=== PATIENT | male | born 1955 | race Caucasian/White ===

== ENCOUNTER 2024-02-09 07:25 | Inpatient (IN) | payer OTHER, MEDICARE ==
[~2024-02-09] VITALS: Ht 172.7 cm; Wt 72.6 kg
[2024-02-09] VITALS (19 sets, daily range): BP systolic 152–180; BP diastolic 84–100; PULSE 53–69; RESP 12–27; TEMP 30.8358–31.05804; O2SAT 99–100
[~2024-02-09 07:25] MED LIST: ACET250T29 PO; ATOR10TA69 PO; BRIM.2 EACHEYE; COR6 MT; DAPA10TA PO; DORZ10DR9 EACHEYE; FURO-151 MT; HYDR25TA PO; LATA2.5D14 EACHEYE; LOSA50TA41 MT; SERT25TA74 PO
[2024-02-09] MEDS: PROPOFOL 10MG/ML 100ML 100 ML IV ONE (07:45)
[2024-02-09] MEDS: SUCCINYLCHOLINE CHLORIDE 200MG/10ML IV ONE (07:55)
[2024-02-09] MEDS: ETOMIDATE 2MG/ML 10ML VIAL IV ONE (07:55)
[2024-02-09] MEDS: DOPAMINE 400MG/250ML PREMIX 250 ML IV PRN (08:30)
[2024-02-09] MEDS: SODIUM CHLORIDE 0.9% 1,000 ML IV ONE (08:33)
[2024-02-09 10:10] LABS: HEMATOCRIT. 27.6 % (42.0-52.0); HEMOGLOBIN. 8.3 g/dL (14.0-18.0); MEAN CORPUSCULAR HGB CONC 29.9 g/dL (31.0-37.0); MEAN PLATELET VOLUME 8.5 fl (7.4-10.4); PLATELET 338 x1000/uL (130-400); RED BLOOD CELL COUNT 2.85 mill/uL (4.7-6.1); RED CELL DISTRIBUTION WIDTH 18.3 % (11.6-14.6); WHITE BLOOD COUNT 13.7 x1000/uL (4.5-11.0)
[2024-02-09 10:17] LABS: LACTIC ACID 3.4 mmol/L (0.4-2.0)
[2024-02-09 10:18] LABS: CHLORIDE 117 mEq/L (98-107); POTASSIUM 4.5 mEq/L (3.5-5.1); SODIUM 141 mEq/L (136-145)
[2024-02-09 10:19] LABS: CALCIUM 7.9 mg/dL (8.7-10.4); CARBON DIOXIDE 13 mEq/L (21-32)
[2024-02-09 10:24] LABS: TRIGLYCERIDE 94 mg/dL (0-150)
[2024-02-09 10:25] LABS: LDL CHOLESTEROL 53 mg/dL (5-100); UREA NITROGEN BLOOD 82 mg/dL (9-23)
[2024-02-09 10:26] LABS: ALANINE AMINOTRANSFERASE 34 IU/L (10-49); ALBUMIN 3.4 g/dL (3.2-4.8); ASPARTATE AMINOTRANSFERASE 56 IU/L (<34); BILIRUBIN DIRECT 0.2 mg/dL (<=3.0); CHOLESTEROL 123 mg/dL (<200); HDL CHOLESTEROL 46 mg/dL (>55)
[2024-02-09 10:27] LABS: BILIRUBIN TOTAL 0.5 mg/dL (0.1-1.0)
[2024-02-09 10:35] LABS: DIFFERENTIAL COMMENT 1
[2024-02-09 10:35] LABS: BG BASE EXCESS -17.7 mmol/L (-2.0-3.0); BG CARBOXYHEMOGLOBIN 0.3 % (0.5-1.5); BG DEOXYHEMOGLOBIN 0.1 % (0.0-5.0); BG FRACTION INSPIRED OXYGEN 100; BG HCO3 ACT 12.7 mmol/L (21.0-28.0); BG METHEMOGLOBIN 0.3 % (0.5-1.5); BG OXYGEN SATURATION 99.9 % (94.0-98.0); BG OXYHEMOGLOBIN 99.3 % (94.0-98.0); BG PCO2 50.8 mmHg (35.0-48.0); BG PH 7.015 (7.350-7.450); BG SAMPLE SITE RIGHT RADIAL; BG TOTAL HEMOGLOBIN 9.7 g/dL (13.5-17.5); BG TOTAL RESPIRATORY RATE 16 b/min; BG VENT MODE VENT - AC
[2024-02-09 10:45] LABS: CREATININE 3.2 mg/dL (0.6-1.3); GLUCOSE 267 mg/dL (70-105)
[2024-02-09 10:48] LABS: ANISOCYTOSIS 2+; PLATELET ESTIMATE NORMAL; TROPONIN I HIGH SENSITIVITY 109 ng/L (3.0-53)
[2024-02-09] MEDS ORDERED: PROPOFOL 10MG/ML 100ML 100 ML IV PRN (13:30)
[2024-02-09] MEDS ORDERED: DEXTROSE 50% WATER 50ML SYRINGE IV PRN (13:45)
[2024-02-09] MEDS ORDERED: HYDROCODONE/ACETAMINOPHEN 5/325MG TABLET PO PRN (13:45)
[2024-02-09] MEDS ORDERED: IPRATROPIUM/ALBUTEROL 0.5-3(2.5)MG/3ML NEB NEB PRN (13:45)
[2024-02-09] MEDS ORDERED: ONDANSETRON HCL 4MG/2ML INJ IV PRN (13:45)
[2024-02-09] MEDS ORDERED: NOREPINEPHRINE 8MG/250ML PMX 250 ML IV PRN (14:00)
[2024-02-09] MEDS ORDERED: DEXT 5%/0.45% NACL 1000ML 1,000 ML IV SCH (14:00)
[2024-02-09] MEDS: PROPOFOL 10MG/ML 100ML 100 ML IV PRN (14:09)
[2024-02-09] MEDS: SODIUM BICARBONATE 8.4% 50MEQ/50ML SYR IV NR (14:10)
[2024-02-09] MEDS: SODIUM BICARBONATE 8.4% 50MEQ/50ML SYR IV ONE (14:34)
[2024-02-09] MEDS: VANCOMYCIN 1.5GM/250ML 250 ML IV SCH (15:06)
[2024-02-09] MEDS: SODIUM BICARBONATE 150 MEQ in DEXTROSE 5% WATER 850 ML IV SCH (15:09)
[2024-02-09] MEDS: ENOXAPARIN 30MG/0.3ML SYR SUBCUT SCH (15:18)
[2024-02-09] MEDS: PANTOPRAZOLE SODIUM 40 MG/VIAL IV ONE (15:18)
[2024-02-09] MEDS: PIPERACILLIN/TAZO 3.375G/50ML 50 ML IV SCH (15:18)
[2024-02-09] MEDS: PANTOPRAZOLE SODIUM 40 MG/VIAL IV SCH (15:18)
[2024-02-09] MEDS: PIPERACILLIN/TAZO 3.375G/50ML 50 ML IV ONE (15:19)
[2024-02-09] MEDS: ENOXAPARIN 30MG/0.3ML SYR SUBCUT ONE (15:19)
[2024-02-09] MEDS ORDERED: NITROGLYCERIN 50 MG in DEXT 5% WATER 240 ML IV PRN (15:30)
[2024-02-09] MEDS: NITROGLYCERIN 50 MG in DEXT 5% WATER 240 ML IV PRN (16:07)
[2024-02-09 17:28] LABS: CLARITY URINE CLOUDY (CLEAR); COLOR URINE YELLOW (YELLOW); GLUCOSE URINE 2+ (NEGATIVE); KETONES URINE NEGATIVE (NEGATIVE); LEUKOCYTE ESTERASE URINE NEGATIVE (NEGATIVE); NITRITE URINE NEGATIVE (NEGATIVE); OCCULT BLOOD URINE 2+ (NEGATIVE); PH URINE 6.5 (4.5-8.0); PROTEIN URINE 3+ (NEGATIVE); SPECIFIC GRAVITY URINE 1.011 (1.005-1.030)
[2024-02-09 17:36] LABS: *AMPHETAMINES SCREEN URINE NEGATIVE (NEGATIVE); *BENZODIAZEPINES SCREEN URINE NEGATIVE (NEGATIVE)
[2024-02-09 17:37] LABS: *BARBITURATES SCREEN URINE NEGATIVE (NEGATIVE); *COCAINE SCREEN URINE NEGATIVE (NEGATIVE); CANNABINOID URINE SCREEN NEGATIVE (NEGATIVE); ECSTASY MDMA SCREEN URINE NEGATIVE (NEGATIVE); METHADONE URINE SCREEN NEGATIVE (NEGATIVE); OPIATES URINE SCREEN NEGATIVE (NEGATIVE); PHENCYCLIDINE URINE SCREEN NEGATIVE (NEGATIVE)
[2024-02-09 17:48] LABS: BACTERIA URINE 3+; SQUAMOUS EPITHELIAL CELL URINE FEW /lpf (RARE/1+); WBC URINE 0-2 /hpf (0-2)
[2024-02-09] MEDS: BLOOD SUGAR DIAGNOSTIC STRIP TEST SCH (17:56)
[2024-02-09] MEDS: INSULIN LISPRO 100 UNITS/ML SUBCUT SCH (18:02)
[2024-02-09] MEDS ORDERED: NALOXONE HCL 0.4MG/ML VIAL IV PRN (21:00)
[2024-02-10] VITALS (105 sets, daily range): BP systolic 51–178; BP diastolic 43–101; PULSE 41–68; RESP 13–30; TEMP 31.22472–35.8362; O2SAT 92–100
[2024-02-10 01:25] LABS: CREATINE KINASE MB FRACTION 40.1 ng/mL (0.5-3.6)
[2024-02-10 01:53] LABS: BG BASE EXCESS -5.2 mmol/L (-2.0-3.0); BG CARBOXYHEMOGLOBIN 0.2 % (0.5-1.5); BG DEOXYHEMOGLOBIN 0.6 % (0.0-5.0); BG FRACTION INSPIRED OXYGEN 50; BG HCO3 ACT 19.5 mmol/L (21.0-28.0); BG METHEMOGLOBIN 0.2 % (0.5-1.5); BG OXYGEN SATURATION 99.4 % (94.0-98.0); BG PCO2 34.9 mmHg (35.0-48.0); BG PH 7.366 (7.350-7.450); BG PO2 224.1 mmHg (83.0-108.0); BG SAMPLE SITE LEFT RADIAL; BG TOTAL HEMOGLOBIN 9.4 g/dL (13.5-17.5); BG VENT MODE VENT - AC
[2024-02-10 06:20] LABS: POTASSIUM 3.2 mEq/L (3.5-5.1)
[2024-02-10 06:22] LABS: CALCIUM 7.7 mg/dL (8.7-10.4)
[2024-02-10 06:26] LABS: CREATININE 2.7 mg/dL (0.6-1.3)
[2024-02-10 08:20] LABS: MEAN CORPUSCULAR HEMOGLOBIN 29.7 pg (28.0-32.0); MEAN CORPUSCULAR HGB CONC 33.3 g/dL (31.0-37.0); MEAN CORPUSCULAR VOLUME 89.1 fL (80.0-94.0); MEAN PLATELET VOLUME 8.4 fl (7.4-10.4); PLATELET 270 x1000/uL (130-400); RED BLOOD CELL COUNT 2.36 mill/uL (4.7-6.1); WHITE BLOOD COUNT 9.4 x1000/uL (4.5-11.0)
[2024-02-10] MEDS: DEXT 5%/0.45% NACL 1000ML 1,000 ML IV SCH (08:32)
[2024-02-10] MEDS: KCL 20MEQ/100ML PREMIX 100 ML IV SCH (08:41)
[2024-02-10] MEDS ORDERED: ASPIRIN 81MG TABLET PO SCH (09:00)
[2024-02-10 09:21] LABS: DIFFERENTIAL COMMENT 1
[2024-02-10 10:04] LABS: BG BASE EXCESS -3.4 mmol/L (-2.0-3.0); BG CARBOXYHEMOGLOBIN 0.4 % (0.5-1.5); BG DEOXYHEMOGLOBIN 1.3 % (0.0-5.0); BG FRACTION INSPIRED OXYGEN 30; BG HCO3 ACT 21.2 mmol/L (21.0-28.0); BG METHEMOGLOBIN 0.5 % (0.5-1.5); BG OXYGEN SATURATION 98.7 % (94.0-98.0); BG OXYHEMOGLOBIN 97.8 % (94.0-98.0); BG PCO2 36.1 mmHg (35.0-48.0); BG PH 7.387 (7.350-7.450); BG PO2 138.4 mmHg (83.0-108.0); BG SAMPLE SITE RIGHT RADIAL; BG TOTAL HEMOGLOBIN 7.5 g/dL (13.5-17.5); BG TOTAL RESPIRATORY RATE 24 b/min; BG VENT MODE VENT - AC
[2024-02-10 11:37] LABS: IRON 24 ug/dL (65-175)
[2024-02-10 11:39] LABS: TOTAL IRON BINDING CAPACITY 168 ug/dl (250-425)
[2024-02-10] MEDS: VANCOMYCIN 500MG PREMIX 100 ML IV SCH (15:08)
[2024-02-10 16:25] LABS: ANISOCYTOSIS 1+; PLATELET ESTIMATE NORMAL
[2024-02-10] MEDS ORDERED: PROPOFOL 10MG/ML 100ML 100 ML IV PRN (19:20)
[2024-02-11] VITALS (102 sets, daily range): BP systolic 90–174; BP diastolic 52–92; PULSE 61–79; RESP 15–27; TEMP 36.22512–37.39188; O2SAT 85–100
[2024-02-11 06:25] LABS: CALCIUM 7.5 mg/dL (8.7-10.4); CHLORIDE 113 mEq/L (98-107); POTASSIUM 3.6 mEq/L (3.5-5.1); SODIUM 144 mEq/L (136-145)
[2024-02-11 06:26] LABS: CARBON DIOXIDE 17 mEq/L (21-32)
[2024-02-11 06:31] LABS: GLUCOSE 119 mg/dL (70-105); TRIGLYCERIDE 112 mg/dL (0-150); UREA NITROGEN BLOOD 76 mg/dL (9-23)
[2024-02-11 06:33] LABS: PHOSPHORUS 4.4 mg/dL (2.5-4.9)
[2024-02-11 08:12] LABS: HEMATOCRIT. 24.1 % (42.0-52.0); HEMOGLOBIN. 7.8 g/dL (14.0-18.0); MEAN CORPUSCULAR HEMOGLOBIN 29.8 pg (28.0-32.0); MEAN CORPUSCULAR HGB CONC 32.4 g/dL (31.0-37.0); MEAN CORPUSCULAR VOLUME 91.9 fL (80.0-94.0); MEAN PLATELET VOLUME 8.9 fl (7.4-10.4); PLATELET 208 x1000/uL (130-400); RED BLOOD CELL COUNT 2.62 mill/uL (4.7-6.1); RED CELL DISTRIBUTION WIDTH 16.1 % (11.6-14.6); WHITE BLOOD COUNT 10.7 x1000/uL (4.5-11.0)
[2024-02-11 08:22] LABS: DIFFERENTIAL COMMENT 1
[2024-02-11] MEDS: FUROSEMIDE 40MG/4ML VIAL IVP NR (09:22)
[2024-02-11] MEDS: CITRIC ACID/SODIUM CITRATE SOLN 30ML UDC NG SCH (09:22)
[2024-02-11] MEDS: INSULIN LISPRO 100 UNITS/ML SUBCUT SCH (12:45)
[2024-02-11] MEDS: BLOOD SUGAR DIAGNOSTIC STRIP TEST SCH (12:59)
[2024-02-11 15:11] LABS: ANISOCYTOSIS 2+; NUCLEATED RED BLOOD CELLS 3 /100 WBC; PLATELET ESTIMATE NORMAL
[2024-02-11 18:52] LABS: AMMONIA 21 uMol/L (<32)
[2024-02-12] VITALS (87 sets, daily range): BP systolic 125–201; BP diastolic 60–98; PULSE 66–96; RESP 10–28; TEMP 36.55848; O2SAT 95–100
[2024-02-12 05:53] LABS: CALCIUM 7.6 mg/dL (8.7-10.4); HEMATOCRIT. 24.9 % (42.0-52.0); MEAN CORPUSCULAR HEMOGLOBIN 28.9 pg (28.0-32.0); MEAN CORPUSCULAR HGB CONC 32.1 g/dL (31.0-37.0); MEAN CORPUSCULAR VOLUME 90.1 fL (80.0-94.0); MEAN PLATELET VOLUME 9.1 fl (7.4-10.4); PLATELET 239 x1000/uL (130-400); POTASSIUM 3.3 mEq/L (3.5-5.1); RED BLOOD CELL COUNT 2.76 mill/uL (4.7-6.1); RED CELL DISTRIBUTION WIDTH 16.9 % (11.6-14.6); WHITE BLOOD COUNT 15.2 x1000/uL (4.5-11.0)
[2024-02-12 05:59] LABS: CREATININE 3.4 mg/dL (0.6-1.3)
[2024-02-12 07:47] LABS: DIFFERENTIAL COMMENT 1
[2024-02-12] MEDS: POTASSIUM CHLORIDE 20MEQ/PACKET NG NR (10:27)
[2024-02-12] MEDS: FUROSEMIDE 40MG/4ML VIAL IVP SCH (10:27)
[2024-02-12] MEDS: MEROPENEM 500MG/50ML IV SCH (16:45)
[2024-02-12] MEDS: VANCOMYCIN 1GM PMX (XELLIA) 200 ML IV NR (17:37)
[2024-02-12 20:57] LABS: ANISOCYTOSIS 1+; PLATELET ESTIMATE NORMAL
[2024-02-12 21:09] LABS: BG BASE EXCESS -4.4 mmol/L (-2.0-3.0); BG CARBOXYHEMOGLOBIN 0.3 % (0.5-1.5); BG DEOXYHEMOGLOBIN 1.9 % (0.0-5.0); BG FRACTION INSPIRED OXYGEN 30; BG HCO3 ACT 18.6 mmol/L (21.0-28.0); BG METHEMOGLOBIN 0.3 % (0.5-1.5); BG OXYGEN SATURATION 98.1 % (94.0-98.0); BG OXYHEMOGLOBIN 97.5 % (94.0-98.0); BG PCO2 27.2 mmHg (35.0-48.0); BG PH 7.453 (7.350-7.450); BG PO2 113.3 mmHg (83.0-108.0); BG SAMPLE SITE RIGHT BRACHIAL; BG TOTAL HEMOGLOBIN 9.1 g/dL (13.5-17.5); BG VENT MODE VENT - CPAP
[2024-02-12] MEDS: HYDRALAZINE 20MG/ML VIAL IV PRN (21:36)
[2024-02-13] VITALS (80 sets, daily range): BP systolic 105–162; BP diastolic 53–75; PULSE 71–94; RESP 9–24; TEMP 36.89184–37.16964; O2SAT 93–99
[2024-02-13 06:14] LABS: CALCIUM 7.9 mg/dL (8.7-10.4); POTASSIUM 3.2 mEq/L (3.5-5.1)
[2024-02-13 06:19] LABS: CREATININE 3.5 mg/dL (0.6-1.3)
[2024-02-13 06:27] LABS: HEMATOCRIT. 25.7 % (42.0-52.0); HEMOGLOBIN. 8.2 g/dL (14.0-18.0); MEAN CORPUSCULAR HEMOGLOBIN 29.5 pg (28.0-32.0); MEAN CORPUSCULAR HGB CONC 31.7 g/dL (31.0-37.0); MEAN PLATELET VOLUME 8.8 fl (7.4-10.4); PLATELET 240 x1000/uL (130-400); RED BLOOD CELL COUNT 2.77 mill/uL (4.7-6.1); RED CELL DISTRIBUTION WIDTH 17.1 % (11.6-14.6); WHITE BLOOD COUNT 17.1 x1000/uL (4.5-11.0)
[2024-02-13 06:43] LABS: DIFFERENTIAL COMMENT 1
[2024-02-13] MEDS: POTASSIUM CHLORIDE 20MEQ/PACKET NG NR (10:28)
[2024-02-13 14:05] LABS: ANISOCYTOSIS 1+; PLATELET ESTIMATE NORMAL
[2024-02-13 15:05] LABS: BG BASE EXCESS -5.9 mmol/L (-2.0-3.0); BG CARBOXYHEMOGLOBIN 0.1 % (0.5-1.5); BG DEOXYHEMOGLOBIN 1.8 % (0.0-5.0); BG FRACTION INSPIRED OXYGEN 30; BG METHEMOGLOBIN 0.3 % (0.5-1.5); BG OXYGEN SATURATION 98.2 % (94.0-98.0); BG OXYHEMOGLOBIN 97.8 % (94.0-98.0); BG PO2 116.9 mmHg (83.0-108.0); BG SAMPLE SITE RIGHT BRACHIAL; BG TOTAL HEMOGLOBIN 8.4 g/dL (13.5-17.5); BG VENT MODE VENT - CPAP
[2024-02-13] MEDS: FUROSEMIDE 40MG/4ML VIAL IVP NR (22:02)
[2024-02-14] VITALS (32 sets, daily range): BP systolic 108–176; BP diastolic 50–95; PULSE 65–99; RESP 11–22; TEMP 35.94732–37.11408; O2SAT 96–100
[2024-02-14 00:13] LABS: BG BASE EXCESS -6.6 mmol/L (-2.0-3.0); BG CARBOXYHEMOGLOBIN 0.3 % (0.5-1.5); BG DEOXYHEMOGLOBIN 2.2 % (0.0-5.0); BG FRACTION INSPIRED OXYGEN 35; BG HCO3 ACT 18.6 mmol/L (21.0-28.0); BG METHEMOGLOBIN 0.3 % (0.5-1.5); BG OXYGEN SATURATION 97.8 % (94.0-98.0); BG OXYHEMOGLOBIN 97.2 % (94.0-98.0); BG PCO2 35.9 mmHg (35.0-48.0); BG PH 7.332 (7.350-7.450); BG PO2 106.6 mmHg (83.0-108.0); BG SAMPLE SITE RIGHT RADIAL; BG TOTAL HEMOGLOBIN 9.4 g/dL (13.5-17.5); BG VENT MODE COOL AEROSOL
[2024-02-14] MEDS: SODIUM BICARBONATE 650MG TABLET PO SCH (04:36)
[2024-02-14] MEDS: METHYLPREDNISOLONE SOD SUCC 40MG/ML (ACT-O-VIAL) IV SCH (13:40)
[2024-02-14 13:52] LABS: BG BASE EXCESS -6.5 mmol/L (-2.0-3.0); BG CARBOXYHEMOGLOBIN 0.4 % (0.5-1.5); BG DEOXYHEMOGLOBIN 1.8 % (0.0-5.0); BG FRACTION INSPIRED OXYGEN 35; BG HCO3 ACT 18.9 mmol/L (21.0-28.0); BG METHEMOGLOBIN 0.2 % (0.5-1.5); BG OXYGEN SATURATION 98.2 % (94.0-98.0); BG OXYHEMOGLOBIN 97.6 % (94.0-98.0); BG PCO2 36.8 mmHg (35.0-48.0); BG PH 7.328 (7.350-7.450); BG PO2 133.9 mmHg (83.0-108.0); BG SAMPLE SITE RIGHT RADIAL; BG TOTAL HEMOGLOBIN 9.3 g/dL (13.5-17.5); BG VENT MODE COOL AEROSOL
[2024-02-14] MEDS: IPRATROPIUM/ALBUTEROL 0.5-3(2.5)MG/3ML NEB HHN SCH (15:51)
[2024-02-15] VITALS (17 sets, daily range): BP systolic 123–152; BP diastolic 57–74; PULSE 63–77; RESP 9–20; TEMP 35.89176–36.78072; O2SAT 97–100
[2024-02-15 07:30] LABS: CALCIUM 8.5 mg/dL (8.7-10.4)
[2024-02-15 07:33] LABS: HEMATOCRIT. 29.2 % (42.0-52.0); HEMOGLOBIN. 9.5 g/dL (14.0-18.0); MEAN CORPUSCULAR HEMOGLOBIN 29.1 pg (28.0-32.0); MEAN CORPUSCULAR HGB CONC 32.4 g/dL (31.0-37.0); MEAN CORPUSCULAR VOLUME 89.8 fL (80.0-94.0); MEAN PLATELET VOLUME 8.9 fl (7.4-10.4); PLATELET 243 x1000/uL (130-400); RED BLOOD CELL COUNT 3.26 mill/uL (4.7-6.1); WHITE BLOOD COUNT 12.1 x1000/uL (4.5-11.0)
[2024-02-15 07:36] LABS: CREATININE 3.9 mg/dL (0.6-1.3)
[2024-02-15 07:56] LABS: DIFFERENTIAL COMMENT 1
[2024-02-15 15:46] LABS: ANISOCYTOSIS 1+; PLATELET ESTIMATE NORMAL
[2024-02-15] MEDS: VANCOMYCIN 750MG PMX (XELLIA) 150 ML IV SCH (19:10)
[2024-02-16] VITALS (17 sets, daily range): BP systolic 138–183; BP diastolic 59–138; PULSE 60–83; RESP 9–20; TEMP 36.44736–36.89184; O2SAT 93–100
[2024-02-16 07:29] LABS: POTASSIUM 4.2 mEq/L (3.5-5.1)
[2024-02-16 07:30] LABS: CALCIUM 8.4 mg/dL (8.7-10.4)
[2024-02-16 07:35] LABS: CREATININE 3.9 mg/dL (0.6-1.3)
[2024-02-16 08:09] LABS: HEMOGLOBIN. 8.7 g/dL (14.0-18.0); MEAN CORPUSCULAR HEMOGLOBIN 29.1 pg (28.0-32.0); MEAN CORPUSCULAR HGB CONC 32.1 g/dL (31.0-37.0); MEAN CORPUSCULAR VOLUME 90.6 fL (80.0-94.0); MEAN PLATELET VOLUME 9.1 fl (7.4-10.4); PLATELET 256 x1000/uL (130-400); RED BLOOD CELL COUNT 2.98 mill/uL (4.7-6.1); RED CELL DISTRIBUTION WIDTH 16.8 % (11.6-14.6); WHITE BLOOD COUNT 14.5 x1000/uL (4.5-11.0)
[2024-02-16 08:14] LABS: DIFFERENTIAL COMMENT 1
[2024-02-16] MEDS ORDERED: LIDOCAINE HCL 1% 10 MG/ML 10ML VIAL ONE (09:28)
[2024-02-16 14:33] LABS: ANISOCYTOSIS 1+; PLATELET ESTIMATE NORMAL
[2024-02-17] VITALS (18 sets, daily range): BP systolic 159–183; BP diastolic 45–90; PULSE 63–84; RESP 10–20; TEMP 36.16956–36.72516; O2SAT 95–99
[2024-02-17 07:22] LABS: HEMATOCRIT. 28.2 % (42.0-52.0); HEMOGLOBIN. 8.9 g/dL (14.0-18.0); MEAN CORPUSCULAR HEMOGLOBIN 28.5 pg (28.0-32.0); MEAN CORPUSCULAR HGB CONC 31.6 g/dL (31.0-37.0); MEAN CORPUSCULAR VOLUME 90.3 fL (80.0-94.0); MEAN PLATELET VOLUME 9.4 fl (7.4-10.4); PLATELET 262 x1000/uL (130-400); RED BLOOD CELL COUNT 3.13 mill/uL (4.7-6.1); RED CELL DISTRIBUTION WIDTH 16.6 % (11.6-14.6); WHITE BLOOD COUNT 13.9 x1000/uL (4.5-11.0)
[2024-02-17 07:31] LABS: POTASSIUM 3.7 mEq/L (3.5-5.1)
[2024-02-17 07:33] LABS: CALCIUM 8.5 mg/dL (8.7-10.4)
[2024-02-17 07:37] LABS: CREATININE 3.4 mg/dL (0.6-1.3)
[2024-02-17 08:25] LABS: DIFFERENTIAL COMMENT 1
[2024-02-17 14:36] LABS: ANISOCYTOSIS 1+; PLATELET ESTIMATE NORMAL
[2024-02-18] VITALS (17 sets, daily range): BP systolic 138–180; BP diastolic 46–83; PULSE 58–79; RESP 10–25; TEMP 36.22512–36.55848; O2SAT 94–99
[2024-02-18] MEDS: ACETAMINOPHEN 325MG TABLET PO PRN (00:45)
[2024-02-18 05:35] LABS: HEMATOCRIT 27.3 % (42.0-52.0); HEMOGLOBIN 8.7 g/dL (14.0-18.0); MEAN CORPUSCULAR HEMOGLOBIN 28.9 pg (28.0-32.0); MEAN CORPUSCULAR HGB CONC 31.7 g/dL (31.0-37.0); MEAN CORPUSCULAR VOLUME 90.9 fL (80.0-94.0); PLATELET 267 x1000/uL (130-400); RED BLOOD CELL COUNT 3.01 mill/uL (4.7-6.1); RED CELL DISTRIBUTION WIDTH 16.6 % (11.6-14.6); WHITE BLOOD COUNT 14.5 x1000/uL (4.5-11.0)
[2024-02-18 05:39] LABS: POTASSIUM 4.3 mEq/L (3.5-5.1)
[2024-02-18 05:40] LABS: CALCIUM 8.4 mg/dL (8.7-10.4)
[2024-02-18 05:45] LABS: CREATININE 3.4 mg/dL (0.6-1.3)
[2024-02-18] MEDS: DEXTROSE 5% WATER 1,000 ML IV SCH (11:11)
[2024-02-18] MEDS: CLONIDINE 0.1MG TABLET PO PRN (16:21)
[2024-02-18] MEDS: VANCOMYCIN 750MG/150ML (BAXTER) IV SCH (21:56)
[2024-02-19] VITALS (10 sets, daily range): BP systolic 138–159; BP diastolic 59–89; PULSE 58–95; RESP 16–20; TEMP 36.114–37.16964; O2SAT 95–100
[2024-02-19] MEDS: FOLIC ACID/VITAMIN B COMP W-C TABLET PO SCH (08:36)
[2024-02-19 10:53] LABS: POTASSIUM 4.3 mEq/L (3.5-5.1)
[2024-02-19 10:54] LABS: CALCIUM 8.2 mg/dL (8.7-10.4)
[2024-02-19 10:59] LABS: CREATININE 2.9 mg/dL (0.6-1.3)
[2024-02-19] MEDS: METHYLPREDNISOLONE SOD SUCC 40MG/ML (ACT-O-VIAL) IV SCH (18:04)
[2024-02-19 22:29] LABS: HEMATOCRIT. 27.3 % (42.0-52.0); HEMOGLOBIN. 8.7 g/dL (14.0-18.0); MEAN CORPUSCULAR HEMOGLOBIN 28.5 pg (28.0-32.0); MEAN CORPUSCULAR HGB CONC 31.8 g/dL (31.0-37.0); MEAN CORPUSCULAR VOLUME 89.4 fL (80.0-94.0); MEAN PLATELET VOLUME 9.2 fl (7.4-10.4); PLATELET 304 x1000/uL (130-400); RED BLOOD CELL COUNT 3.06 mill/uL (4.7-6.1); RED CELL DISTRIBUTION WIDTH 15.9 % (11.6-14.6); WHITE BLOOD COUNT 15.3 x1000/uL (4.5-11.0)
[2024-02-19 22:34] LABS: DIFFERENTIAL COMMENT 1
[2024-02-19 22:58] LABS: PLATELET ESTIMATE NORMAL
[2024-02-20] VITALS: BP 111/75; PULSE 72; RESP 20; TEMP 36.16956; O2SAT 97
[2024-02-20 04:00] VITALS: BP 158/63; PULSE 74; RESP 20; TEMP 36.28068; O2SAT 95
[2024-02-20 08:00] VITALS: BP 126/73; PULSE 70; RESP 20; TEMP 36.00288; O2SAT 95
[2024-02-20 12:00] VITALS: BP 189/76; PULSE 78; RESP 18; TEMP 36.55848; O2SAT 95
[2024-02-20 16:00] VITALS: BP 117/76; PULSE 79; RESP 18; TEMP 36.33624; O2SAT 98
[2024-02-20 16:58] LABS: HEMATOCRIT. 28.3 % (42.0-52.0); LYMPHOCYTES % 1.8 % (20.0-50.0); MEAN CORPUSCULAR HEMOGLOBIN 28.9 pg (28.0-32.0); MEAN CORPUSCULAR HGB CONC 31.7 g/dL (31.0-37.0); MONOCYTES % 2.9 % (2.0-8.0); NEUTROPHILS % 95.3 % (40.0-76.0); PLATELET 324 x1000/uL (130-400); RED BLOOD CELL COUNT 3.11 mill/uL (4.7-6.1); RED CELL DISTRIBUTION WIDTH 15.8 % (11.6-14.6); WHITE BLOOD COUNT 15.1 x1000/uL (4.5-11.0)
[2024-02-20 17:08] LABS: DIFFERENTIAL COMMENT 1; POTASSIUM 4.4 mEq/L (3.5-5.1)
[2024-02-20 17:09] LABS: CALCIUM 7.9 mg/dL (8.7-10.4)
[2024-02-20 17:14] LABS: CREATININE 2.5 mg/dL (0.6-1.3)
[2024-02-20 20:00] VITALS: BP 157/61; PULSE 74; RESP 20; TEMP 36.44736; O2SAT 96
[2024-02-20] MEDS: VANCOMYCIN 750MG/150ML (BAXTER) IV SCH (20:54)
[2024-02-21] VITALS: BP 171/75; PULSE 74; RESP 20; TEMP 36.16956; O2SAT 97
[2024-02-21 04:30] VITALS: BP 160/68; PULSE 70; RESP 19; TEMP 36.16956; O2SAT 96
[2024-02-21 07:45] LABS: POTASSIUM 5.1 mEq/L (3.5-5.1)
[2024-02-21 07:46] LABS: CALCIUM 8.2 mg/dL (8.7-10.4)
[2024-02-21 07:51] LABS: CREATININE 2.4 mg/dL (0.6-1.3)
[2024-02-21 08:14] VITALS: BP 151/59; PULSE 73; RESP 19; TEMP 36.72516; O2SAT 95
[2024-02-21 11:49] VITALS: BP 189/71; PULSE 74; RESP 18; TEMP 36.72516; O2SAT 95
[2024-02-21 15:50] VITALS: BP 166/67; PULSE 79; RESP 18; TEMP 36.78072; O2SAT 96
[2024-02-21] MEDS: MEROPENEM 1GM/50ML DUPLEX 50 ML IV SCH (16:05)
[2024-02-21] MEDS ORDERED: LINE600T11 MT (16:27)
[2024-02-21 20:00] VITALS: BP 165/67; PULSE 71; RESP 20; TEMP 37.11408; O2SAT 97
== END 2024-02-21 23:45 | DRG 870 ==
LOC: ER 07:25 → EDBEDREQ 07:39 → MICUNO 09:35 → EDBEDREQ 09:42 → EDBEDREQTM 09:42 → 5EST 02-14 14:24 → 7WST 02-18 15:20
PROVIDERS: ADMIT Internal Medicine; ATTEND Internal Medicine
PROC: 5A1955Z Respiratory Ventilation, Greater than 96 Consecutive Hours (ICD-10-PCS; principal; 2024-02-09)
PROC: 0BH17EZ Insertion of Endotracheal Airway into Trachea, Via Natural or Artificial Opening (ICD-10-PCS; 2024-02-09)
PROC: 02HV33Z Insertion of Infusion Device into Superior Vena Cava, Percutaneous Approach (ICD-10-PCS; 2024-02-09)
PROC: B548ZZA Ultrasonography of Superior Vena Cava, Guidance (ICD-10-PCS; 2024-02-09)
PROC: 30233N1 Transfusion of Nonautologous Red Blood Cells into Peripheral Vein, Percutaneous Approach (ICD-10-PCS; 2024-02-10)
PROC: 4A00X4Z Measurement of Central Nervous Electrical Activity, External Approach (ICD-10-PCS; 2024-02-14)
PROC: 02H633Z Insertion of Infusion Device into Right Atrium, Percutaneous Approach (ICD-10-PCS; 2024-02-16)
PROC: B548ZZA Ultrasonography of Superior Vena Cava, Guidance (ICD-10-PCS; 2024-02-16)
DX: A41.02 Sepsis due to Methicillin resistant Staphylococcus aureus (principal); I46.9 Cardiac arrest, cause unspecified; J96.01 Acute respiratory failure with hypoxia; I50.23 Acute on chronic systolic (congestive) heart failure; N17.0 Acute kidney failure with tubular necrosis; R65.21 Severe sepsis with septic shock; I13.0 Hypertensive heart and chronic kidney disease with heart failure and stage 1 through stage 4 chronic kidney disease, or unspecified chronic kidney disease; E87.20 Acidosis, unspecified; M62.82 Rhabdomyolysis; G93.40 Encephalopathy, unspecified; Z99.11 Dependence on respirator [ventilator] status; Z20.822 Contact with and (suspected) exposure to COVID-19; E11.22 Type 2 diabetes mellitus with diabetic chronic kidney disease; E11.65 Type 2 diabetes mellitus with hyperglycemia; N18.32 Chronic kidney disease, stage 3b; B96.1 Klebsiella pneumoniae [K. pneumoniae] as the cause of diseases classified elsewhere; E78.00 Pure hypercholesterolemia, unspecified; E11.319 Type 2 diabetes mellitus with unspecified diabetic retinopathy without macular edema; K70.30 Alcoholic cirrhosis of liver without ascites; R00.1 Bradycardia, unspecified; E87.6 Hypokalemia; D64.9 Anemia, unspecified; H54.3 Unqualified visual loss, both eyes; L89.620 Pressure ulcer of left heel, unstageable; Z99.2 Dependence on renal dialysis; Z74.01 Bed confinement status
CPT/HCPCS: 31500; 36415; 36573; 36600; 71045; 73630; 76770; 80048; 80061; 80076; 80202; 80305; 81003; 82140; 82375; 82550; 82553; 82805; 82962; 83036; 83540; 83550; 83605; 83735; 83880; 84100; 84145; 84478; 84484; 85025; 85027; 86850; 86900; 86920; 87070; 87077; 87186; 87426; 87804; 89055; 92610; 93005; 93306; 93970; 94002; 94003; 94070; 94640; 95816; 97161; 99291; A4606; A6261; C1725; J0360; J1265; J1650; J1815; J1940; J2003; J2185; J2470; J2543; J2704; J2920; J3370; J3480; J3490; J7030; J7060; J7070; P9016